=== PATIENT | male | born 1985 | race Caucasian/White ===

== ENCOUNTER 2017-08-16 22:52 | Emergency (ER) | payer MEDICAID ==
[~2017-08-16] VITALS: Ht 175.3 cm; Wt 68.0 kg
[2017-08-16 22:56] VITALS: BP 138/74
--- NOTE | 2017-08-16 23:10 | NUR ---
PT AMBULATORY TO LOBBY W/ STEADY GAIT.
[2017-08-16 23:36] LABS: BARBITURATE, URINE NEG. ng/ml (NEG <=200); BENZODIAZEPINE, URINE NEG. ng/mL (NEG <=200); CANNABINOID, URINE NEG. ng/mL (NEG <=50); COCAINE, URINE NEG. ng/mL (NEG <=300); OPIATE, URINE NEG. ng/mL (NEG <=2000); PHENCYCLIDINE SCREEN,URINE NEG. ng/mL (NEG <=25)
--- NOTE | 2017-08-17 00:16 | NUR ---
PT C/O HEADACHE X1 WEEK. PT DENIES N/V/D, COUGH, SOB, VISION CHANGES. PUPILS 6CM REACTIVE TO LIGHT. PT SITTING IN BED, GIRLFRIEND AT BEDSIDE.
[2017-08-17 01:14] VITALS: BP 135/75
--- NOTE | 2017-08-17 01:14 | NUR ---
Patient discharged with v/s stable. Written and verbal after care instructions given and explained. Patient verbalized understanding. Ambulatory with steady gait. All questions addressed prior to discharge. Advised to follow up with PMD.
== END 2017-08-17 01:14 | disposition home or self-care (01) ==
LOC: MED 22:52
DX: F15.10 Other stimulant abuse, uncomplicated (principal)
CPT/HCPCS: 80305; 99283

== ENCOUNTER 2017-09-22 04:25 | Emergency (ER) | payer MEDICAID ==
[~2017-09-22] VITALS: Ht 175.3 cm; Wt 72.6 kg
[2017-09-22 04:30] VITALS: BP 129/69
[2017-09-22] MEDS ORDERED: KETOROLAC 30 MG/ML VIAL IM ONE (05:15)
[2017-09-22 05:44] LABS: BASOPHILS # (AUTO) 0.1 K/uL (0.00-0.22); EOSINOPHILS # (AUTO) 0.2 K/uL (0-0.4); EOSINOPHILS % (AUTO) 2.3 % (0.0-4.0); HEMATOCRIT 43.8 % (36-52); HEMOGLOBIN 14.6 g/dL (12.0-18.0); LYMPHOCYTES # (AUTO) 2.4 K/uL (2.0-11.5); MEAN CORPUSCULAR HEMOGLOBIN 30 pg (27-31); MEAN CORPUSCULAR HGB CONC 33 g/dL (33-37); MEAN CORPUSCULAR VOLUME 89.9 fL (80-94); MONOCYTES # (AUTO) 0.8 K/uL (0.8-1.0); MONOCYTES % (AUTO) 8.6 % (1.7-9.3); NEUTROPHILS # (AUTO) 6.1 K/uL (1.8-7.7); NEUTROPHILS % (AUTO) 63.1 % (42.2-75.2); PLATELET COUNT (AUTO) 226 K/uL (140-450); RED BLOOD CELL COUNT(AUTO) 4.87 MIL/uL (4.20-6.10); WHITE BLOOD COUNT (AUTO) 9.7 K/uL (4.8-10.8)
[2017-09-22 05:44] LABS: APPEARANCE,URINE CLEAR (CLEAR); BILIRUBIN,URINE NEGATIVE (NEGATIVE); BLOOD, URINE NEGATIVE (NEGATIVE); COLOR,URINE YELLOW (YELLOW); LEUKOCYTE ESTERASE ,URINE NEGATIVE (NEGATIVE); NITRITE, URINE NEGATIVE (NEGATIVE); PH,URINE 6.5 (5.0-9.0); UGLUCOSE NEGATIVE (NEGATIVE)
[2017-09-22 05:57] LABS: ANION GAP 12.6 (8-16); CARBON DIOXIDE 27.6 mmol/L (21-32); POTASSIUM 4.2 mmol/L (3.5-5.1)
[2017-09-22 06:04] LABS: TOTAL BILIRUBIN 0.2 mg/dL (0.0-1.0)
[2017-09-22 06:53] VITALS: BP 139/85
== END 2017-09-22 06:54 | disposition home or self-care (01) ==
LOC: MED 04:25
DX: K80.20 Calculus of gallbladder without cholecystitis without obstruction (principal); Z87.442 Personal history of urinary calculi
CPT/HCPCS: 36415; 74176; 80053; 81003; 83690; 85025; 96372; 99285; J1885

== ENCOUNTER 2017-10-23 22:18 | Emergency (ER) | payer SELFPAY ==
--- NOTE | 2017-10-23 22:28 | NUR ---
PATIENT LEFT WITHOUT BEING SEEN BY DR. CARRIZALES. NO FURTHER CARE PROVIDED FOR PATIENT.
--- NOTE | 2017-10-23 22:28 | NUR ---
CALLED TO BE TRIAGE NO RESPONSE
== END 2017-10-23 22:28 | disposition left against medical advice (07) ==
LOC: MED 22:18
DX: Z53.21 Procedure and treatment not carried out due to patient leaving prior to being seen by health care provider (principal)